=== PATIENT | male | born 1985 | race Two or more races ===

== ENCOUNTER 2020-06-26 01:43 | Emergency (ER) | payer SELFPAY ==
[~2020-06-26] VITALS: Ht 165.1 cm; Wt 68.0 kg
[2020-06-26 02:58] LABS: Basophils # (auto) 0.1 10 ^3/uL (0-0.2); Basophils % (auto) 0.7 % (0.0-2.0); Eosinophils # (auto) 0.3 10 ^3/uL (0-0.8); Eosinophils % (auto) 3.1 % (0.0-7.0); Hematocrit 39.2 % (41.0-53.0); Hemoglobin 13.3 g/dL (13.5-17.5); Lymphocytes # (auto) 1.7 10 ^3/uL (0.4-5.4); Lymphocytes % (auto) 20.7 % (10.0-50.0); Mean Corpuscular Hemoglobin 28.5 pg (28.0-32.0); Mean Corpuscular Hgb Conc. 34.1 g/dL (32.0-36.0); Mean Corpuscular Volume 83.6 fL (80.0-100.0); Monocytes # (auto) 0.5 10 ^3/uL (0-1.3); Neutrophils # (auto) 5.8 10 ^3/uL (1.6-8.6); Neutrophils % (auto) 69.5 % (37.0-80.0); Platelet Count (auto) 319 10^3/uL (140-450); Red Blood Cells 4.69 10^6/uL (4.5-5.90); White Blood Cell 8.3 10^3/uL (4.4-10.8)
[2020-06-26 03:16] LABS: Albumin 3.7 g/dL (3.4-5.0); BUN/Creatinine Ratio 15.6; Potassium 3.4 mmol/L (3.5-5.1)
[2020-06-26 03:19] LABS: Bilirubin, Total 0.5 mg/dL (0.2-1.0); Total Protein 7.2 g/dL (6.4-8.2)
[2020-06-26 03:24] LABS: Magnesium 2.2 mg/dL (1.6-2.6)
[2020-06-26 06:00] VITALS: BP 117/75
== END 2020-06-26 06:36 | disposition home or self-care (01) ==
LOC: ER 01:46
DX: J02.9 Acute pharyngitis, unspecified (principal); F17.210 Nicotine dependence, cigarettes, uncomplicated; Z20.822 Contact with and (suspected) exposure to COVID-19
CPT/HCPCS: 36415; 71045; 80053; 82728; 83605; 83615; 83735; 85025; 87070; 87426; 87880

== ENCOUNTER 2022-04-28 06:01 | Emergency (ER) | payer OTHER ==
[~2022-04-28] VITALS: Ht 167.6 cm; Wt 66.8 kg
[~2022-04-28 06:01] MED LIST: CIPR-173 PO
[2022-04-28 06:30] VITALS: BP 121/72
== END 2022-04-28 06:54 | disposition left against medical advice (07) ==
LOC: ER 06:01
DX: R11.2 Nausea with vomiting, unspecified (principal); Z53.21 Procedure and treatment not carried out due to patient leaving prior to being seen by health care provider

== ENCOUNTER 2023-08-28 00:10 | Emergency (ER) | payer MEDICAID, OTHER ==
[~2023-08-28] VITALS: Ht 167.6 cm; Wt 65.0 kg
[2023-08-28] MEDS ORDERED: ACE3T PO (01:50)
[2023-08-28] MEDS ORDERED: IBUP-1456 PO (01:50)
[2023-08-28 04:20] VITALS: BP 128/88; PULSE 85; RESP 18; TEMP 98.1; O2SAT 97
[2023-08-28] MEDS: HYDROcodone-ACET 10/325MG TAB PO ONE (04:20)
== END 2023-08-28 04:33 | disposition home or self-care (01) ==
LOC: ER 00:10
DX: K40.90 Unilateral inguinal hernia, without obstruction or gangrene, not specified as recurrent (principal); F17.210 Nicotine dependence, cigarettes, uncomplicated
CPT/HCPCS: 76856

== ENCOUNTER 2023-08-28 11:19 | Emergency (ER) | payer MEDICAID ==
[~2023-08-28] VITALS: Ht 167.6 cm; Wt 74.2 kg
[~2023-08-28 11:19] MED LIST changes: +ACE3T PO; +IBUP-1456 PO
[2023-08-28 11:42] VITALS: BP 116/75; PULSE 97; RESP 18; O2SAT 98
== END 2023-08-28 13:01 | disposition left against medical advice (07) ==
LOC: ER 11:28
DX: K40.90 Unilateral inguinal hernia, without obstruction or gangrene, not specified as recurrent (principal); F17.210 Nicotine dependence, cigarettes, uncomplicated; F15.90 Other stimulant use, unspecified, uncomplicated; Z98.890 Other specified postprocedural states; Z79.899 Other long term (current) drug therapy

== ENCOUNTER 2024-01-03 03:50 | Emergency (ER) | payer MEDICAID ==
[~2024-01-03] VITALS: Ht 167.6 cm; Wt 67.1 kg
[2024-01-03] MEDS: HYDROcodone-ACET 5/325MG TAB PO ONE (04:42)
[2024-01-03] MEDS: KETOROLAC TROMETH 60MG/2ML VIAL IM ONE (04:43)
[2024-01-03 04:57] VITALS: BP 120/71; TEMP 97.9
[2024-01-03 04:59] VITALS: PULSE 95; RESP 18; O2SAT 98
== END 2024-01-03 05:34 | disposition home or self-care (01) ==
LOC: ER 03:50
DX: K40.90 Unilateral inguinal hernia, without obstruction or gangrene, not specified as recurrent (principal); F17.210 Nicotine dependence, cigarettes, uncomplicated; Z79.899 Other long term (current) drug therapy; Z90.49 Acquired absence of other specified parts of digestive tract; Z90.89 Acquired absence of other organs
CPT/HCPCS: 96372; 99283; J1885

== ENCOUNTER 2024-03-10 06:53 | Emergency (ER) | payer MEDICAID ==
[~2024-03-10] VITALS: Ht 170.2 cm; Wt 75.0 kg
[2024-03-10] MEDS: KETOROLAC TROMETH 30 MG/ML 1ML VIAL IV ONE (08:01)
[2024-03-10] MEDS: SODIUM CHLORIDE 0.9% 1,000 ML IV ONE (08:01)
[2024-03-10 08:09] VITALS: PULSE 75; RESP 19; O2SAT 95
[2024-03-10 08:15] VITALS: TEMP 97.6; O2SAT 96
[2024-03-10 08:26] LABS: Basophils # (auto) 0.1 10 ^3/uL (0-0.2); Basophils % (auto) 0.6 % (0.0-2.0); Eosinophils # (auto) 0.2 10 ^3/uL (0-0.8); Eosinophils % (auto) 1.6 % (0.0-7.0); Hematocrit 39.6 % (41.0-53.0); Hemoglobin 13.1 g/dL (13.5-17.5); Lymphocytes # (auto) 1.3 10 ^3/uL (0.4-5.4); Lymphocytes % (auto) 13.1 % (10.0-50.0); Mean Corpuscular Hemoglobin 29.2 pg (28.0-32.0); Mean Corpuscular Hgb Conc. 33.2 g/dL (32.0-36.0); Mean Corpuscular Volume 87.8 fL (80.0-100.0); Monocytes # (auto) 0.4 10 ^3/uL (0-1.3); Monocytes % (auto) 4.7 % (0.0-12.0); Neutrophils # (auto) 7.7 10 ^3/uL (1.6-8.6); Platelet Count (auto) 310 10^3/uL (140-450); Red Blood Cells 4.51 10^6/uL (4.5-5.90); Red Cell Distribution Width 13.4 % (11.8-14.3); White Blood Cell 9.6 10^3/uL (4.4-10.8)
--- NOTE | 2024-03-10 08:31 | DVH ---
EXAM: CT Abdomen and Pelvis Without Intravenous Contrast CLINICAL INDICATION: R inguinal hernia pain TECHNIQUE: Axial computed tomography images of the abdomen and pelvis without intravenous contrast. This CT exam was performed using one or more of the following dose reduction techniques: automated exposure control, adjustment of the mA and/or kV according to patient size, and/or use of iterative r econstruction technique. RADIATION DOSE: CTDlvol= 6 mGy, DLP= 366.06 mGy-cm COMPARISON: None FINDINGS: LUNG BASES: Unremarkable. No mass. No consolidation. ABDOMEN: LIVER: Unremarkable. GALLBLADDER AND BILE DUCTS: Unremarkable. No calcified stones. No ductal dilation. PANCREAS: Unremarkable. No ductal dilation. SPLEEN: Unremarkable. No splenomegaly. ADRENALS: Unremarkable. No mass. KIDNEYS AND URETERS: Unremarkable. No obstructing stones. No hydronephrosis. STOMACH AND BOWEL: Bilateral inguinal hernias containing fat. No bowel obstruction or pneumoperitone um. Fecal retention in the colon consistent with constipation. No mucosal thickening. PELVIS: APPENDIX: No findings to suggest acute appendicitis. BLADDER: Unremarkable. No stones. REPRODUCTIVE: Unremarkable as visualized. ABDOMEN and PELVIS: INTRAPERITONEAL SPACE: See above. BONES/JOINTS: No acute fracture. No dislocation. SOFT TISSUES: Umbilical hernia containing fat. VASCULATURE: Unremarkable. No abdominal aortic aneurysm. LYMPH NODES: Unremarkable. No enlarged lymph nodes. OTHER FINDINGS: . . IMPRESSION: 1. Bilateral inguinal hernias containing fat. No bowel obstruction or pneumoperitoneum. 2. Fecal retention in the colon consistent with constipation. 3. Umbilical hernia containing fat.
[2024-03-10 08:37] LABS: Alanine Aminotransferase 23 U/L (7-40); Albumin 4.3 g/dL (3.2-4.8); Alkaline Phosphatase 96 U/L (46-116); Anion Gap 10 (5-15); Aspartate Aminotransferase 34 U/L (13-40); BUN/Creatinine Ratio 18.3 (10.0-20.0); Blood Urea Nitrogen 15 mg/dL (9-23); Calcium 9.4 mg/dL (8.7-10.4); Carbon Dioxide 25 mmol/L (20-31); Chloride 105 mmol/L (98-107); Glucose 96 mg/dL (74-106); Sodium 140 mmol/L (136-145)
[2024-03-10 08:38] LABS: Bilirubin, Total 0.5 mg/dL (0.2-1.0); Total Protein 6.8 g/dL (5.7-8.2)
[2024-03-10 08:39] LABS: Potassium 3.4 mmol/L (3.5-5.1)
[2024-03-10] MEDS: ONDANSETRON HCL 4 MG/2 ML VIAL IV ONE ×3 (08:59→10:20)
[2024-03-10] MEDS: MORPHINE SULFATE 4 MG/ML SYR/VIAL IV ONE ×3 (08:59→10:20)
--- NOTE | 2024-03-10 09:28 | ED.PDOC ---
History of Present Illness HPI Comments 38M BIBA w/ no prior Hx associated to the c/c of Pelvic pain. Pt reports on having a right sided pelvic hernia pain for the past 4 hours. Pt states that when the hernia comes out, he does not "mess with it" or even try to push it back in. SHx of Tonsillectomy. Denies chills, fever, N/V/D, SOB, CP or other as sociated symptoms, modifiers, or recent injuries at this time. Chief Complaint: Pelvic Pain Time Seen by MD: 08:50 Primary Care Provider: NONE Reviewed Notes: Nurses Notes, Repairer Pump Notes, Medications, Allergies Allergies: Coded Allergies: NO KNOWN ALLERGIES (Unverified , 06/26/20) Home Meds Active Scripts Ibuprofen Micronized (Ibuprofen) 800 Mg Tab, 800 MG PO Q8HP PRN, #30 TAB prn pain, take with food Prov:JULISSA MANTILLA MD 03/10/24 Acetaminophen (Tylenol Extra Strength) 500 Mg Tab, 1000 MG PO Q6HP PRN, #30 TAB prn pain Prov:JULISSA MANTILLA MD 03/10/24 Acetaminophen W/ Codeine (Tylenol W/Cod #3) 1 Tab Tb, 1 TAB PO Q6HP PRN, #20 TAB Prov:JIMENA PETERS PAC 08/28/23 Ibuprofen (Ibuprofen) 800 Mg Tab, 1 TAB PO TID, #30 TAB 0 Refills Prov:JIMENA PETERS PAC 08/28/23 Ciprofloxacin Hcl (Cipro) 500 Mg Tab, 500 MG PO BID for 7 Days, #14 Prov:JHONY GRACE MD 06/08/21 Information Source: Patient Mode of Arrival: EMS Severity: Moderate Timing: Hours Duration: Since onset, Hours Prehospital treatment: None Past Medical History PAST MEDICAL HISTORY: Denies Surgical History: Tonsillectomy Family History Family History: Reviewed,noncontributory to illness, Unknown Social History Smoker: Unknown Alcohol: Unknown Drugs: Unknown Lives In: Home Constitutional: reports: others (Hernia); denies: chills, diaphoresis, fatigue, fever, malaise, sweats, weakness EENTM: denies: blurred vision, double vision, ear bleeding, ear discharge, ear drainage, ear pain, ear ringing, eye pain, eye redness, hearing loss, mouth pain, mouth swelling, nasal discharge, nose bleeding, nose congestion, nose pain, photophobia, tearing, throat pain, throat swelling, voice changes, others Respiratory: denies: cough, hemoptysis, orthopnea, SOB at rest, shortness of breath, SOB with excertion, stridor, wheezing, others Cardiovascular: denies: chest pain, dizzy spells, diaphoresis, Dyspnea on e xertion, edema, irregular heart beat, left arm pain, lightheadedness, palpitations, PND, syncope, others Gastrointestinal: denies: abdomen distended, abdominal pain, blood streaked bowels, constipated, diarrhea, dysphagia, difficulty swallowing, hematemesis, melena, nausea, poor appetite, poor fluid intake, rectal bleeding, rectal pain, vomiting, others Genitourinary: denies: burning, dysuria, flank pain, frequency, hematuria, incontinence, penile discharge, penile sore, pain, testicle pain, testicle swelling, urgency, others Neurological: denies: dizziness, fainting, headache, left sided numbness, left sided weakness, numbness, paresthesia, pre-existing deficit, right sided numbness, right sided weakness, seizure, speech problems, tingling, tremors, weakness, others Musculoskeletal: denies: back pain, gout, joint pain, joint swelling, muscle pain, muscle stiffness, neck pain, others Integumetry: denies: bruises, change in color, change in hair/nails, dryness, laceration, lesions, lumps, rash, wounds, others Allergic/Immunocompromised: denies: Difficulty Healing, Frequent Infections, Hives, Itching, others Hematologic/Lymphatic: denies: anemia, blood clots, easy bleeding, easy bruising, swollen glands, others Endocrine: denies: excessive hunger, excessive sweating, excessive thirst, excessive urination, flushing, intolerance to cold, intolerance to heat, unexplained weight gain, unexplained weight loss, others Psychiatric: denies: anxiety, bipolar disorder, depression, hopeless, panic disorder, schizophrenia, sleepless, suicidal, others All Other Systems: Reviewed and Negative Physical Exam General Appearance: Mild Distress HEENT: Other (Pupils symmetric, moist mucous membranes) Neck: Full Range of Motion, Normal Inspection Respiratory: Lungs Clear, No Accessory Muscle Use, No Respiratory Distress, Normal Breath Sounds Cardiovascular: No Edema, No JVD, Regular Rate/Rhythm Breast Exam: Deferred Gastrointestinal: Soft, Other (Soft, diffusely tender right inguinal hernia, approximately 4 x 4 cm. No overlying discoloration.) Genitalia: Deferred Pelvic: Deferred Rectal: Deferred Extremities: Normal inspection, Normal range of motion, Non-tender, No pedal edema Musculoskeletal : Apperance: Normal Neurologic: Alert (Oriented x4), Normal Affect, Normal Mood, Other (Ambulatory without difficulty. No gross focal deficit.) Cerebellar Function: NOT DONE Reflexes: NOT DONE Skin: Dry, Normal Color, Warm Lymphatic: NOT DONE Was a procedure done? Was a procedure done?: Yes Sedation Sedation?: No Other Procedure Procedure Reduction of fat containing right inguinal hernia Indication Pain Anesthetic Morphine 4 mg IV Success Direct fat containing right inguinal hernia reduced using gentle direct constant pressure. Informed consent obtained: Yes Risks, benefits, and alternati: Yes Notes Patient tolerated the procedure well. Differential Dx Considerations may include: Direct/indirect inguinal hernia, incarceration, bowel obstruction, ischemic bowel, neoplasm, among others X-Ray, Labs, Meds, VS Vital Signs Date Time Temp Pulse Resp B/P (MAP) Pulse Ox O2 Delivery O2 Flow Rate FiO2 03/10/24 10:20 84 20 120/71 03/10/24 09:26 74 19 110/74 03/10/24 08:59 87 19 122/60 03/10/24 08:15 97.6 86 19 117/81 (93) 96 97.6 03/10/24 08:09 75 19 95 Room Air* 0 21 03/10/24 07:12 99.1 64 20 100/71 (81) 98 Lab Test 03/10/24 08:05 Range/Units White Blood Count 9.6 4.4-10.8 10^3/uL Red Blood Count 4.51 4.5-5.90 10^6/uL Hemoglobin 13.1 L 13.5-17.5 g/dL Hematocrit 39.6 L 41.0-53.0 % Mean Corpuscular Volume 87.8 80.0-100.0 fL Mean Corpuscular Hemoglobin 29.2 28.0-32.0 pg Mean Corpuscular Hemoglobin Concent 33.2 32.0-36.0 g/dL Red Cell Distribution Width 13.4 11.8-14.3 % Platelet Count 310 140-450 10^3/uL Mean Platelet Volume 8.4 6.9-10.8 fL Neutrophils (%) (Auto) 80.0 37.0-80.0 % Lymphocytes (%) (Auto) 13.1 10.0-50.0 % Monocytes (%) (Auto) 4.7 0.0-12.0 % Eosinophils (%) (Auto) 1.6 0.0-7.0 % Basophils (%) (Auto) 0.6 0.0-2.0 % Neutrophils # (Auto) 7.7 1.6-8.6 10 ^3/uL Lymphocytes # (Auto) 1.3 0.4-5.4 10 ^3/uL Monocytes # (Auto) 0.4 0-1.3 10 ^3/uL Eosinophils # (Auto) 0.2 0-0.8 10 ^3/uL Basophils # (Auto) 0.1 0-0.2 10 ^3/uL Nucleated Red Blood Cells 0.0 % Sodium Level 140 136-145 mmol/L Potassium Level 3.4 L 3.5-5.1 mmol/L Chloride Level 105 98-107 mmol/L Carbon Dioxide Level 25 20-31 mmol/L Anion Gap 10 5-15 Blood Urea Nitrogen 15 9-23 mg/dL Creatinine 0.82 0.700-1.30 mg/dL Glomerular Filtration Rate Calc 116 >90 mL/min BUN/Creatinine Ratio 18.3 10.0-20.0 Serum Glucose 96 74-106 mg/dL Calcium Level 9.4 8.7-10.4 mg/dL Total Bilirubin 0.5 0.2-1.0 mg/dL Aspartate Amino Transferase (AST) 34 13-40 U/L Alanine Aminotransferase (ALT) 23 7-40 U/L Alkaline Phosphatase 96 46-116 U/L Total Protein 6.8 5.7-8.2 g/dL Albumin 4.3 3.2-4.8 g/dL Current Medications Medications (Trade) Dose Ordered Sig/Goldy Route Start Time Stop Time Status Last Admin Sodium Chloride 1,000 ml @ 1,000 mls/hr Q1H ONCE IV 03/10/24 07:30 03/10/24 08:29 DC 03/10/24 08:01 Ketorolac Tromethamine (Toradol Injection) 30 mg ONCE ONCE IV 03/10/24 07:30 03/10/24 07:31 DC 03/10/24 08:01 Morphine Sulfate 4 mg ONCE ONCE IV 03/10/24 09:00 03/10/24 09:01 DC 03/10/24 08:59 Ondansetron HCl (Zofran) 4 mg ONCE ONCE IV 03/10/24 09:00 03/10/24 09:01 DC 03/10/24 08:59 Morphine Sulfate 4 mg ONCE ONCE IV 03/10/24 10:15 03/10/24 10:16 DC 03/10/24 10:20 Ondansetron HCl (Zofran) 4 mg ONCE ONCE IV 03/10/24 10:15 03/10/24 10:16 DC 03/10/24 10:20 PROCEDURE(s): ABPL - CT AB PEL WO CON-NO ORAL OR IV REASON: R inguinal hernia pain ORDER NUMBER(s): [id number], ACCESSION NUMBER(s): [id number] EXAM: CT Abdomen and Pelvis Without Intravenous Contrast CLINICAL INDICATION: R inguinal hernia pain TECHNIQUE: Axial computed tomography images of the abdomen and pelvis without intravenous contrast. This CT exam was performed using one or more of the fol lowing dose reduction techniques: automated exposure control, adjustment of the mA and/or kV according to patient size, and/or use of iterative reconstruction technique. RADIATION DOSE: CTDlvol= 6 mGy, DLP= 366.06 mGy-cm COMPARISON: None FINDINGS: LUNG BASES: Unremarkable. No mass. No consolidation. ABDOMEN: LIVER: Unremarkable. GALLBLADDER AND BILE DUCTS: Unremarkable. No calcified stones. No ductal dilation. PANCREAS: Unremarkable. No ductal dilation. SPLEEN: Unremarkable. No splenomegaly. ADRENALS: Unremarkable. No mass. KIDNEYS AND URETERS: Unremarkable. No obstructing stones. No hydronephrosis. STOMACH AND BOWEL: Bilateral inguinal hernias containing fat. No bowel obstruction or pneumoperitoneum. Fecal retention in the colon consistent with constipation. No mucosal thickening. PELVIS: APPENDIX: No findings to suggest acute appendicitis. BLADDER: Unremarkable. No stones. REPRODUCTIVE: Unremarkable as visualized. ABDOMEN and PELVIS: INTRAPERITONEAL SPACE: See above. BONES/JOINTS: No acute fracture. No dislocation. SOFT TISSUES: Umbilical hernia containing fat. VASCULATURE: Unremarkable. No abdominal aortic aneurysm. LYMPH NODES: Unremarkable. No enlarged lymph nodes. OTHER FINDINGS: . . IMPRESSION: 1. Bilateral inguinal hernias containing fat. No bowel obstruction or pneumoperitoneum. 2. Fecal retention in the colon consistent with constipation. 3. Umbilical hernia containing fat. X-Ray, Labs, Meds, VS Comment 38-year-old male with no significant past medical history complaining of right inguinal hernia pain. Vitals unremarkable Exam remarkable for right inguinal hernia, soft, diffusely tender Rhythm strip, independently interpreted by me: Sinus rhythm, rate 68, no ectopy. CT abdomen and pelvis: IMPRESSION: 1. Bilateral inguinal hernias containing fat. No bowel obstruction or pneumoperitoneum. 2. Fecal retention in the colon consistent with constipation. 3. Umbilical hernia containing fat. CBC, CMP unremarkable for any abnormality of acute significance. UA pending. Patient treated with the following in the ED: 1 L 0.9 normal saline IV bolus, Toradol 30 mg IV, morphine 4 mg IV x2 The right inguinal hernia was reduced using direct pressure. Please see procedure note for details. On re-evaluation, patient states pain has improved. Vitals are stable. He was tolerating p.o. food and fluids. Hospitalization was considered, however patient had rapid improvement of his symptoms with treatment in the ED, and I no longer feel hospitalization is necessary. Patient advised regarding workup findings, my impression, treatment plan and follow-up recommendations, specifically to follow-up with Dr. Piper for outpatient surgical evaluation for hernia repair. He expressed understanding and agreed. Rx ibuprofen, Tylenol Time of 1ST Reevaluation: 09:20 Reevaluation 1ST: Unchanged Time of 2ND Reevaluation: 10:42 Reevaluation 2ND: Improved Patient Education/Counseling: Diagnosis, Treatment, Prognosis Family Education/Counseling: No Family Present Additional Information I reviewed the following notes from the pt's past medical encounters: 01/03/24 The following tests were ordered, and results were reviewed by me: labs, PHA, CT I reviewed and agreed with the following test results read by other providers: CT I discussed treatments and results with medical personnel and: (consultants, fam, etc) Departure 1 Departure Time of Disposition: 10:17 Impression: Primary Impression: Direct inguinal hernia of right side Disposition: 01 HOME / SELF CARE / HOMELESS Condition: Stable Referrals: RODRI PIPER MD Additional Instructions: Your blood tests were unremarkable. Your CT showed fat containing hernias on both the right and left sides. I have prescribed pain medication. Follow-up with your primary doctor for referral to a general surgeon for hernia repair. Alternatively, follow-up directly with Dr. Piper (general surgery). e-Prescriptions Ibuprofen Micronized (Ibuprofen) 800 Mg Tab 800 MG PO Q8HP PRN, #30 TAB prn pain, take with food Prov: JULISSA MANTILLA MD 03/10/24 Acetaminophen (Tylenol Extra Strength) 500 Mg Tab 1000 MG PO Q6HP PRN, #30 TAB prn pain Prov: JULISSA MANTILLA MD 03/10/24 Discharged With: Self Critical Care Note Critical Care Time?: No Stability Stability form required: No Heart Score Heart Score: Heart Score Response (Comments) Value History N/A 0 EKG N/A 0 Age N/A 0 Risk Factors N/A 0 Troponin N/A 0 Total 0 I personally scribed for JULISSA MANTILLA MD ([email or web address]) on 03/10/24 at 09 :28. Electronically submitted by Jason Sung ([email or web address]). JULISSA MANTILLA MD Mar 10, 2024 09:28
[2024-03-10] MEDS ORDERED: ACET-1304 PO (10:21)
[2024-03-10] MEDS ORDERED: IBUP-1455 PO (10:21)
[2024-03-10 10:48] VITALS: BP 112/86; PULSE 84; RESP 19
== END 2024-03-10 10:50 | disposition home or self-care (01) ==
LOC: ER 06:53 → EDBD 06:53 → ER 10:50
DX: K40.90 Unilateral inguinal hernia, without obstruction or gangrene, not specified as recurrent (principal); F17.200 Nicotine dependence, unspecified, uncomplicated; K42.9 Umbilical hernia without obstruction or gangrene; Z79.1 Long term (current) use of non-steroidal anti-inflammatories (NSAID); Z90.89 Acquired absence of other organs
CPT/HCPCS: 36415; 74176; 80053; 85025; 96374; 96375; 96376; 99285; J1885; J2270; J2405; J7030

== ENCOUNTER 2024-03-16 01:56 | Emergency (ER) | payer MEDICAID ==
[~2024-03-16] VITALS: Ht 165.1 cm; Wt 72.0 kg
[2024-03-16 01:56] VITALS: BP 129/88; PULSE 79; RESP 18; TEMP 98.7; O2SAT 98
[~2024-03-16 01:56] MED LIST changes: +ACET-1304 PO; +IBUP-1455 PO
--- NOTE | 2024-03-16 02:15 | ED.PDOC ---
GI ASSESSMENT HPI Comments 38-year-old male who came to ER via EMS for abdominal pain. Patient was diagnosed to have direct right inguinal hernia since August 2023. Since then patient has been having episodes of right inguinal pain with a reducible hernia. Patient has not yet seen a surgeon regarding this issue. Recurrence of right inguinal pain with bulging mass right inguinal area prompted patient to come to the ER Chief Complaint: Abdominal pain Time Seen by MD: 02:14 Primary Care Provider: NONE Reviewed Notes: Nurses Notes Allergies: Coded Allergies: NO KNOWN ALLERGIES (Unverified , 06/26/20) Home Meds Active Scripts Ibuprofen Micronized (Ibuprofen) 800 Mg Tab, 800 MG PO Q8HP PRN, #30 TAB prn pain, take with food Prov:JULISSA MANTILLA MD 03/10/24 Acetaminophen (Tylenol Extra Strength) 500 Mg Tab, 1000 MG PO Q6HP PRN, #30 TAB prn pain Prov:JULISSA MANTILLA MD 03/10/24 Acetaminophen W/ Codeine (Tylenol W/Cod #3) 1 Tab Tb, 1 TAB PO Q6HP PRN, #20 TAB Prov:JIMENA PETERS PAC 08/28/23 Ibuprofen (Ibuprofen) 800 Mg Tab, 1 TAB PO TID, #30 TAB 0 Refills Prov:JIMENA PETERS PAC 08/28/23 Ciprofloxacin Hcl (Cipro) 500 Mg Tab, 500 MG PO BID for 7 Days, #14 Prov:JHONY GRACE MD 06/08/21 Information Source: Patient Mode of Arrival: EMS Timing: Days Duration: Intermittent Prehospital treatment: None Quality: Aching Vomitus: None Stool: Normal Severity: Moderate Recent: None Recent Hx of: None Pain Location: Other (Right inguinal) Associated sign and symptoms: Abdominal Pain Past Medical History PAST MEDICAL HISTORY: Denies Surgical History: Tonsillectomy Family History Family History: Reviewed,noncontributory to illness Social History Smoker: Non-Smoker Alcohol: Denies ETOH Use Drugs: Methamphetamine Lives In: Home Constitutional: denies: chills, diaphoresis, fatigue, fever, malaise, sweats, weakness, others EENTM: denies: blurred vision, double vision, ear bleeding, ear discharge, ear drainage, ear pain, ear ringing, eye pain, eye redness, hearing loss, mouth pain, mouth swelling, nasal discharge, nose bleeding, nose congestion, nose pain, photophobia, tearing, throat pain, throat swelling, voice changes, others Respiratory: denies: cough, hemoptysis, orthopnea, SOB at rest, shortness of breath, SOB with excertion, stridor, wheezing, others Cardiovascular: denies: chest pain, dizzy spells, diaphoresis, Dyspnea on exertion, edema, irregular heart beat, left arm pain, lightheadedness, palpitations, PND, syncope, others Gastrointestinal: reports: abdominal pain (Right inguinal area); denies: abdomen distended, blood streaked bowels, constipated, diarrhea, dysphagia, difficulty swallowing, hematemesis, melena, nausea, poor appetite, poor fluid intake, rectal bleeding, rectal pain, vomiting, others Genitourinary: denies: burning, dysuria, flank pain, frequency, hematuria, incontinence, penile discharge, penile sore, pain, testicle pain, testicle swelling, urgency, others Neurological: denies: dizziness, fainting, headache, left sided numbness, left sided weakness, numbness, paresthesia, pre-existing deficit, right sided numbness, right sided weakness, seizure, speech problems, tingling, tremors, weakness, others Musculoskeletal: denies: back pain, gout, joint pain, joint swelling, muscle pain, muscle stiffness, neck pain, others Integumetry: denies: bruises, change in color, change in hair/nails, dryness, laceration, lesions, lumps, rash, wounds, others Allergic/Immunocompromised: denies: Difficulty Healing, Frequent Infections, Hives, Itching, others Hematologic/Lymphatic: denies: anemia, blood clots, easy bleeding, easy br uising, swollen glands, others Endocrine: denies: excessive hunger, excessive sweating, excessive thirst, excessive urination, flushing, intolerance to cold, intolerance to heat, unexplained weight gain, unexplained weight loss, others Psychiatric: denies: anxiety, bipolar disorder, depression, hopeless, panic disorder, schizophrenia, sleepless, suicidal, others Physical Exam General Appearance: No Apparent Distress, Normal HEENT: Normal ENT Inspection, Pharynx Normal, TMs Normal Neck: Full Range of Motion, Non-Tender, Normal, Normal Inspection Respiratory: Chest Non-Tender, Lungs Clear, No Accessory Muscle Use, No R espiratory Distress, Normal Breath Sounds Cardiovascular: No Edema, No JVD, No Murmur, No Gallop, Normal Peripheral Pulses, Regular Rate/Rhythm Breast Exam: Deferred Gastrointestinal: Hernia (soft easily reducible right inguinal hernia), No Organomegaly, Non Tender, No Pulsatile Mass, Normal Bowel Sounds, Soft Genitalia: Deferred Pelvic: Deferred Rectal: Deferred Extremities: No calf tenderness, Normal capillary refill, Normal inspection, Normal range of motion, Non-tender, No pedal edema Musculoskeletal : Apperance: Normal Neurologic: Alert, shank faker II-XII nml as Tested, No Motor Deficits, Normal Affect, Normal Mood, No Sensory Deficits Cerebellar Function: Normal Reflexes: Normal Skin: Dry, Normal Color, Warm Lymphatic: No Adenopathy Was a procedure done? Was a procedure done?: No GI differential Dx Differential Diagnosis: Diverticular disease, Gastritis/PUD, Gastroenteritis, Hernia, Pancreatitis, UTI X-Ray, Labs, Meds, VS Vital Signs Date Time Temp Pulse Resp B/P (MAP) Pulse Ox O2 Delivery O2 Flow Rate FiO2 03/16/24 01:56 98.7 79 18 129/88 (102) 98 Time of 1ST Reevaluation: 02:11 Reevaluation 1ST: Improved Time of 2ND Reevaluation: 02:30 Reevaluation 2ND: Resolved Patient Education/Counseling: Diagnosis, Treatment Family Education/Counseling: No Family Present Departure 1 Departure Time of Disposition: 02:30 (right inguinal hernia, soft, easily reducible) Impression: Primary Impression: Direct inguinal hernia of right side Disposition: 01 HOME / SELF CARE / HOMELESS Condition: Stable Discharged With: Self Critical Care Note Critical Care Time?: No Stability Stability form required: No Heart Score Heart Score: Heart Score Response (Comments) Value History N/A 0 EKG N/A 0 Age N/A 0 Risk Factors N/A 0 Troponin N/A 0 Total 0 I personally scribed for LUL MULTANI MD ([email or web address]) on 03/16/24 at 02:15. Electronically submitted by Amos Jaquez ([email or web address]). LUL MULTANI MD Mar 16, 2024 02:15
[2024-03-16] MEDS: IBUPROFEN 600 MG TAB PO ONE (02:45)
== END 2024-03-16 03:34 | disposition home or self-care (01) ==
LOC: ER 01:56 → EDBD 01:56 → ER 03:34
DX: K40.90 Unilateral inguinal hernia, without obstruction or gangrene, not specified as recurrent (principal); F15.10 Other stimulant abuse, uncomplicated; Z79.1 Long term (current) use of non-steroidal anti-inflammatories (NSAID); Z90.89 Acquired absence of other organs

== ENCOUNTER 2024-03-20 19:34 | Inpatient (IN) | payer MEDICAID ==
[~2024-03-20] VITALS: Ht 167.6 cm; Wt 74.5 kg
--- NOTE | 2024-03-20 19:39 | ED.PDOC ---
History of Present Illness HPI Comments 38-year-old male who came to ER via EMS for abdominal pain. Patient was diagnosed to have direct right inguinal hernia since August 2023. Since then patient has been having episodes of right inguinal pain with a reducible hernia. Patient has not yet seen a surgeon regarding this issue. Recurrence of right inguinal pain with bulging mass right inguinal area prompted patient to come to the ER Time Seen by MD: 19:30 Primary Care Provider: NONE Reviewed Notes: Medications, Allergies Allergies: Coded Allergies: NO KNOWN ALLERGIES (Unverified , 06/26/20) Home Meds Active Scripts Ibuprofen Micronized (Ibuprofen) 800 Mg Tab, 800 MG PO Q8HP PRN, #30 TAB prn pain, take with food Prov:JULISSA MANTILLA MD 03/10/24 Acetaminophen (Tylenol Extra Strength) 500 Mg Tab, 1000 MG PO Q6HP PRN, #30 TAB prn pain Prov:JULISSA MANTILLA MD 03/10/24 Acetaminophen W/ Codeine (Tylenol W/Cod #3) 1 Tab Tb, 1 TAB PO Q6HP PRN, #20 TAB Prov:JIMENA PETERS PAC 08/28/23 Ibuprofen (Ibuprofen) 800 Mg Tab, 1 TAB PO TID, #30 TAB 0 Refills Prov:JIMENA PETERS PAC 08/28/23 Ciprofloxacin Hcl (Cipro) 500 Mg Tab, 500 MG PO BID for 7 Days, #14 Prov:JHONY GRACE MD 06/08/21 Information Source: Patient, Emergency Med Personnel Mode of Arrival: EMS Severity: Moderate Timing: Weeks Duration: Intermittent Prehospital treatment: None Past Medical History PAST MEDICAL HISTORY: Denies Surgical History: Tonsillectomy Family History Family History: Reviewed,noncontributory to illness Social History Smoker: Non-Smoker Alcohol: Denies ETOH Use Drugs: Methamphetamine Lives In: Home Constitutional: denies: chills, diaphoresis, fatigue, fever, malaise, sweats, weakness, others EENTM: denies: blurred vision, double vision, ear bleeding, ear discharge, ear drainage, ear pain, ear ringing, eye pain, eye redness, hearing loss, mouth pain, mouth swelling, nasal discharge, nose bleeding, nose congestion, nose pain, photophobia, tearing, throat pain, throat swelling, voice changes, others Respiratory: denies: cough, hemoptysis, orthopnea, SOB at rest, shortness of breath, SOB with excertion, stridor, wheezing, others Cardiovascular: denies: chest pain, dizzy spells, diaphoresis, Dyspnea on exertion, edema, irregular heart beat, left arm pain, lightheadedness, palpitations, PND, syncope, others Gastrointestinal: reports: abdominal pain; denies: abdomen distended, blood streaked bowels, constipated, diarrhea, dysphagia, difficulty swallowing, hematemesis, melena, nausea, poor appetite, poor fluid intake, rectal bleeding, rectal pain, vomiting, others Genitourinary: denies: burning, dysuria, flank pain, frequency, hematuria, incontinence, penile discharge, penile sore, pain, testicle pain, testicle swelling, urgency, others Neurological: denies: dizziness, fainting, headache, left sided numbness, left sided weakness, numbness, paresthesia, pre-existing deficit, right sided numbness, right sided weakness, seizure, speech problems, tingling, tremors, weakness, others Musculoskeletal: denies: back pain, gout, joint pain, joint swelling, muscle pain, muscle stiffness, neck pain, others Integumetry: denies: bruises, change in color, change in hair/nails, dryness, laceration, lesions, lumps, rash, wounds, others Allergic/Immunocompromised: denies: Difficulty Healing, Frequent Infections, Hives, Itching, others Hematologic/Lymphatic: denies: anemia, blood clots, easy bleeding, easy bruising, swollen glands, others Endocrine: denies: excessive hunger, excessive sweating, excessive thirst, excessive urination, flushing, intolerance to cold, intolerance to heat, unexplained weight gain, unexplained weight loss, others Psychiatric: denies: anxiety, bipolar disorder, depression, hopeless, panic disorder, schizophrenia, sleepless, suicidal, others All Other Systems: Reviewed and Negative Physical Exam General Appearance: No Apparent Distress, Normal HEENT: Normal ENT Inspection, Pharynx Normal, TMs Normal Neck: Full Range of Motion, Non-Tender, Normal, Normal Inspection Respiratory: Chest Non-Tender, Lungs Clear, No Accessory Muscle Use, No Respiratory Distress, Normal Breath Sounds Cardiovascular: No Edema, No JVD, No Murmur, No Gallop, Normal Peripheral Pulses, Regular Rate/Rhythm Breast Exam: Deferred Gastrointestinal: No Organomegaly, Non Tender, No Pulsatile Mass, Normal Bowel Sounds, Soft Genitalia: Deferred Pelvic: Deferred Rectal: Deferred Extremities: No calf tenderness, Normal capillary refill, Normal inspection, Normal range of motion, Non-tender, No pedal edema Musculoskeletal : Apperance: Normal Neurologic: Alert, cargoman II-XII nml as Tested, No Motor Deficits, Normal Affect, Normal Mood, No Sensory Deficits Cerebellar Function: Normal Reflexes: Normal Skin: Dry, Normal Color, Warm Lymphatic: No Adenopathy Was a procedure done? Was a procedure done?: No Differential Dx Considerations may include: Inguinal hernia, viral syndrome X-Ray, Labs, Meds, VS Vital Signs Date Time Temp Pulse Resp B/P (MAP) Pulse Ox O2 Delivery O2 Flow Rate FiO2 03/20/24 19:37 98.0 78 18 114/77 (89) 99 Lab Test 03/20/24 19:53 Range/Units White Blood Count 5.5 4.4-10.8 10^3/uL Red Blood Count 4.78 4.5-5.90 10^6/uL Hemoglobin 14.0 13.5-17.5 g/dL Hematocrit 42.1 41.0-53.0 % Mean Corpuscular Volume 88.0 80.0-100.0 fL Mean Corpuscular Hemoglobin 29.3 28.0-32.0 pg Mean Corpuscular Hemoglobin Concent 33.3 32.0-36.0 g/dL Red Cell Distribution Width 13.5 11.8-14.3 % Platelet Count 283 140-450 10^3/uL Mean Platelet Volume 8.4 6.9-10.8 fL Neutrophils (%) (Auto) 64.6 37.0-80.0 % Lymphocytes (%) (Auto) 24.1 10.0-50.0 % Monocytes (%) (Auto) 5.2 0.0-12.0 % Eosinophils (%) (Auto) 5.6 0.0-7.0 % Basophils (%) (Auto) 0.5 0.0-2.0 % Neutrophils # (Auto) 3.6 1.6-8.6 10 ^3/uL Lymphocytes # (Auto) 1.3 0.4-5.4 10 ^3/uL Monocytes # (Auto) 0.3 0-1.3 10 ^3/uL Eosinophils # (Auto) 0.3 0-0.8 10 ^3/uL Basophils # (Auto) 0 0-0.2 10 ^3/uL Nucleated Red Blood Cells 0.2 % Prothrombin Time 10.7 9.3-11.8 sec Prothrombin Time INR 1.01 0.9-1.15 Sodium Level 143 136-145 mmol/L Potassium Level 4.0 3.5-5.1 mmol/L Chloride Level 107 98-107 mmol/L Carbon Dioxide Level 27 20-31 mmol/L Anion Gap 9 5-15 Blood Urea Nitrogen 13 9-23 mg/dL Creatinine 1.05 0.700-1.30 mg/dL Glomerular Filtration Rate Calc 94 >90 mL/min BUN/Creatinine Ratio 12.4 10.0-20.0 Serum Glucose 115 H 74-106 mg/dL Calcium Level 9.7 8.7-10.4 mg/dL Time of 1ST Reevaluation: 20:00 Reevaluation 1ST: Unchanged Patient Education/Counseling: Diagnosis, Treatment, Prognosis Family Education/Counseling: No Family Present Departure 1 Departure Time of Disposition: 21:09 (Patient with a chronic inguinal hernia and causing him severe pain. We will admit patient for further workup and expert consultation) Impression: Primary Impression: Bilateral inguinal hernia Qualified Codes: K40.21 - Bilateral inguinal hernia, without obstruction or gangrene, recurrent Additional Impression: Intractable abdominal pain Disposition: ADMITTED INPATIENT Admit to: Med Surg Condition: Serious Critical Care Note Critical Care Time?: No Stability Stability form required: No I personally scribed for GUILLAUME NICOLAS MD ([email or web address]) on 03/20/24 at 19:39. Electronically submitted by Silverio Lepe ([email or web address]). GUILLAUME NICOLAS MD Mar 20, 2024 19:39
[2024-03-20 20:18] LABS: Basophils # (auto) 0 10 ^3/uL (0-0.2); Basophils % (auto) 0.5 % (0.0-2.0); Eosinophils # (auto) 0.3 10 ^3/uL (0-0.8); Eosinophils % (auto) 5.6 % (0.0-7.0); Hematocrit 42.1 % (41.0-53.0); Lymphocytes # (auto) 1.3 10 ^3/uL (0.4-5.4); Lymphocytes % (auto) 24.1 % (10.0-50.0); Mean Corpuscular Hemoglobin 29.3 pg (28.0-32.0); Mean Corpuscular Hgb Conc. 33.3 g/dL (32.0-36.0); Monocytes # (auto) 0.3 10 ^3/uL (0-1.3); Monocytes % (auto) 5.2 % (0.0-12.0); Neutrophils # (auto) 3.6 10 ^3/uL (1.6-8.6); Neutrophils % (auto) 64.6 % (37.0-80.0); Nucleated Red Blood Cells % 0.2 %; Platelet Count (auto) 283 10^3/uL (140-450); Red Blood Cells 4.78 10^6/uL (4.5-5.90); Red Cell Distribution Width 13.5 % (11.8-14.3); White Blood Cell 5.5 10^3/uL (4.4-10.8)
[2024-03-20 20:25] LABS: Chloride 107 mmol/L (98-107); Sodium 143 mmol/L (136-145)
[2024-03-20 20:26] LABS: Anion Gap 9 (5-15); Calcium 9.7 mg/dL (8.7-10.4); Carbon Dioxide 27 mmol/L (20-31)
[2024-03-20 20:31] LABS: BUN/Creatinine Ratio 12.4 (10.0-20.0); Blood Urea Nitrogen 13 mg/dL (9-23)
--- NOTE | 2024-03-20 20:31 | DVH ---
CHEST RADIOGRAPH Indication: pre-op Technique: Single frontal view of the chest was obtained COMPARISON: CHEST XRAY 1 VIEW on DOS: 06/26/20 FINDINGS: Lines and Tubes: None Lungs: Clear Pleura: No effusion. No pneumothorax. Cardiomediastinal contours: Unremarkable Bones: Unremarkable IMPRESSION: No acute disease.
[2024-03-20 20:33] LABS: Glucose 115 mg/dL (74-106)
[2024-03-20 20:49] LABS: INR 1.01 (0.9-1.15); Prothrombin Time 10.7 sec (9.3-11.8)
[2024-03-20] MEDS: KETOROLAC TROMETH 30 MG/ML 1ML VIAL IV ONE (21:47)
[2024-03-20] MEDS: SODIUM CHLORIDE 0.9% 1,000 ML IV ONE (21:47)
[2024-03-20] MEDS: ONDANSETRON HCL 4 MG/2 ML VIAL IV ONE (21:47)
--- NOTE | 2024-03-20 21:59 | DVHHPRES ---
History of Present Illness Resident Creating Document: KAREN VALLES RESIDENT History of Present Illness This is a 38-year-old male with past medical history of right-sided inguinal hernia presented to the ED with a chief complaint of lower abdominal pain and aching pain in the inguinal hernia for last 1 day prior to this admission. The patient states that he was diagnosed with inguinal hernia few months ago and presented to the ER few times because of the recurrent inguinal pain but no surgical evaluation was done before. The patient also complains of pain and irreducible inguinal hernia for the same duration. The patient denies fever, chills, nausea, vomiting, dysuria, hematuria or any change in the bowel habit. Past Medical History Right-sided inguinal hernia Past Surgical History Tonsillectomy Lives: Alone Past Social History Lives alone Smokes 2 to 3 cigarettes per day, occasional drinker and polysubstance abuse disorder Review of Systems Constitutional: No: Fever, Chills, Sweats, Weakness, Malaise, Other Eyes: No: Pain, Vision change, Conjunctivae inflammation, Eyelid inflammation, Other, Redness ENT: No: Ear pain, Ear discharge, Nose pain, Nose discharge, Nose congestion, Mouth pain, Mouth swelling, Throat pain, Throat swelling, Other Respiratory: No: Cough, Dry, Shortness of breath, SOB with excertion, Wheezing, Hemoptysis, Pleuritic Pain, Sputum, Wheezing, Other Cardiovascular: No: Chest Pain, Palpitations, Orthopnea, Paroxysmal Noc. Dyspnea, Edema, Lt Headedness, Other Gastrointestinal: Abdominal Pain; No: Nausea, Vomiting, Diarrhea, Constipation, Melena, Hematochezia, Other Genitourinary: No Dysuria, No Frequency, No Incontinence, No Hematuria, No Retention, No Other Musculoskeletal: No: other, neck pain, shoulder pain, arm pain, back pain, hand pain, leg pain, foot pain Skin: No: Rash, Lesions, Jaundice, Bruising, Other Neurological: No: Weakness, Numbness, Incoordination, Change in speech, Confusion, Seizures, Other Allergies: Coded Allergies: NO KNOWN ALLERGIES (Unverified , 06/26/20) Exam Vital Signs Vital Signs Date Time Temp Pulse Resp B/P (MAP) Pulse Ox O2 Delivery O2 Flow Rate FiO2 03/20/24 21:48 97.5 67 67 101/58 (72) 100 97.5 Exam Physical examination: General Appearance: Alert, Oriented X3, Cooperative, No acute distress HEENT: Atraumatic, PERRLA, EOMI, Mucous membrane moist/pink Respiratory: Clear to auscultation, Normal air movement Cardiovascular: Regular rate, Normal S1, Normal S2, No murmurs, no chest wall tenderness Abdominal: Normal bowel sounds, Soft, No tenderness, No hepatospenomegaly, No masses Extremities: No clubbing, No cyanosis, No edema, Normal pulses, No tenderness/swelling Skin: No rashes, No breakdown, No significant lesion Neuro: Normal gait, Normal speech, Strength at 5/5 X4 ext, Normal tone, Sensation intact, grossly intact cranial nerves Psych/Mental Status: Mental status NL, Mood NL Labs/Xrays Labs Test 03/20/24 19:53 Range/Units White Blood Count 5.5 4.4-10.8 10^3/uL Red Blood Count 4.78 4.5-5.90 10^6/uL Hemoglobin 14.0 13.5-17.5 g/dL Hematocrit 42.1 41.0-53.0 % Mean Corpuscular Volume 88.0 80.0-100.0 fL Mean Corpuscular Hemoglobin 29.3 28.0-32.0 pg Mean Corpuscular Hemoglobin Concent 33.3 32.0-36.0 g/dL Red Cell Distribution Width 13.5 11.8-14.3 % Platelet Count 283 140-450 10^3/uL Mean Platelet Volume 8.4 6.9-10.8 fL Neutrophils (%) (Auto) 64.6 37.0-80.0 % Lymphocytes (%) (Auto) 24.1 10.0-50.0 % Monocytes (%) (Auto) 5.2 0.0-12.0 % Eosinophils (%) (Auto) 5.6 0.0-7.0 % Basophils (%) (Auto) 0.5 0.0-2.0 % Neutrophils # (Auto) 3.6 1.6-8.6 10 ^3/uL Lymphocytes # (Auto) 1.3 0.4-5.4 10 ^3/uL Monocytes # (Auto) 0.3 0-1.3 10 ^3/uL Eosinophils # (Auto) 0.3 0-0.8 10 ^3/uL Basophils # (Auto) 0 0-0.2 10 ^3/uL Nucleated Red Blood Cells 0.2 % Prothrombin Time 10.7 9.3-11.8 sec Prothrombin Time INR 1.01 0.9-1.15 Sodium Level 143 136-145 mmol/L Potassium Level 4.0 3.5-5.1 mmol/L Chloride Level 107 98-107 mmol/L Carbon Dioxide Level 27 20-31 mmol/L Anion Gap 9 5-15 Blood Urea Nitrogen 13 9-23 mg/dL Creatinine 1.05 0.700-1.30 mg/dL Glomerular Filtration Rate Calc 94 >90 mL/min BUN/Creatinine Ratio 12.4 10.0-20.0 Serum Glucose 115 H 74-106 mg/dL Calcium Level 9.7 8.7-10.4 mg/dL Assessment/Plan Assessment/Plan Assessment and plan: # Possible incarcerated right inguinal hernia - NPO after midnight - IV normal saline at 75 mL/hour - IV cefazolin 2 g once and IV metronidazole 500 mg once - Consulted surgery Goal of care discussed with the patient for more than 17 minutes full code Plan discussed with Dr. Pressley Plan discussed with: Patient, Other My Orders Orders - KAREN VALLES RESIDENT Procedure Category Date Status Time Admit ADMIT 03/20/24 Verified 21:56 Type And Screen BBK 03/20/24 Verified 21:56 * Surgical Consult CONS 03/20/24 Verified NS PHA 03/20/24 Verified 22:00 Date of Service: Mar 20, 2024 Billing Provider: RAPHAEL PRESSLEY MD Common Visit Codes: [id number] INP/OBS CARE (HIGH) KAREN VALLES RESIDENT Mar 20, 2024 21:59 RAPHAEL PRESSLEY MD Mar 21, 2024 11:20
[2024-03-20] MEDS ORDERED: PIPERACILLIN-TAZO 4.5GM 100 ML IV ONE (23:45)
[2024-03-21] VITALS (9 sets, daily range): BP systolic 105–117; BP diastolic 56–77; PULSE 62–85; RESP 16–19; TEMP 97.8–98.5; O2SAT 96–100
[2024-03-21] MEDS: metroNIDAZOLE 500MG/100ML 100 ML IV ONE (02:19)
[2024-03-21] MEDS: SODIUM CHLORIDE 0.9% 1,000 ML IV SCH (02:19)
[2024-03-21] MEDS: ceFAZolin 2 GM/D5W50ml 50 ML IV ONE (04:08)
[2024-03-21 07:54] LABS: Basophils # (auto) 0 10 ^3/uL (0-0.2); Basophils % (auto) 0.6 % (0.0-2.0); Eosinophils # (auto) 0.4 10 ^3/uL (0-0.8); Eosinophils % (auto) 7.2 % (0.0-7.0); Hematocrit 38.8 % (41.0-53.0); Lymphocytes # (auto) 1.7 10 ^3/uL (0.4-5.4); Lymphocytes % (auto) 33.6 % (10.0-50.0); Mean Corpuscular Hemoglobin 29.6 pg (28.0-32.0); Mean Corpuscular Hgb Conc. 33.6 g/dL (32.0-36.0); Mean Corpuscular Volume 88.1 fL (80.0-100.0); Monocytes # (auto) 0.3 10 ^3/uL (0-1.3); Monocytes % (auto) 6.2 % (0.0-12.0); Neutrophils # (auto) 2.7 10 ^3/uL (1.6-8.6); Neutrophils % (auto) 52.4 % (37.0-80.0); Nucleated Red Blood Cells % 0.1 %; Platelet Count (auto) 252 10^3/uL (140-450); Red Cell Distribution Width 13.5 % (11.8-14.3); White Blood Cell 5.1 10^3/uL (4.4-10.8)
[2024-03-21 07:59] LABS: Potassium 4.2 mmol/L (3.5-5.1); Sodium 140 mmol/L (136-145)
[2024-03-21 08:00] LABS: Anion Gap 6 (5-15); Carbon Dioxide 26 mmol/L (20-31); Chloride 108 mmol/L (98-107)
[2024-03-21 08:01] LABS: Calcium 8.9 mg/dL (8.7-10.4)
[2024-03-21 08:05] LABS: BUN/Creatinine Ratio 18.8 (10.0-20.0); Blood Urea Nitrogen 15 mg/dL (9-23); Glucose 104 mg/dL (74-106)
--- NOTE | 2024-03-21 10:11 | DVHINCON2 ---
DATE OF CONSULTATION: 03/21/2024 HISTORY OF PRESENT ILLNESS: The patient has a symptomatic right inguinal hernia. He is examined in his bed. He is in no acute distress. The patient admits to having had right-sided hernia for extended period of time. It became painful approximately 48 hours ago. The patient has no prior medical history. He is a . PAST SURGICAL HISTORY: Tonsillectomy. SOCIAL HISTORY: . REVIEW OF SYSTEMS: Reveals no contributory information on 12 systems reviewed. PHYSICAL EXAMINATION: VITAL SIGNS: The patient is afebrile, normotensive, heart rate 67 and regular. HEENT: Pupils are equal, round, react to light equally. Sclerae nonicteric. Extraocular motion is intact. Uvula midline. Trachea midline. Carotids are full without bruits. Jugular veins are collapsed. HEART: Regular rate and rhythm without murmur or gallop. ABDOMEN: Nondistended, nontender. No palpable masses or organomegalies. Has right inguinoscrotal hernia, which is reducible and nontender to palpation. LABORATORY DATA: The patient's laboratory evaluation shows a normal white count, normal H and H, normal platelet count, normal INR, normal PT. The patient has normal electrolytes and normal chemistries. IMPRESSION AND PLAN: The patient has a right inguinal hernia, possibly chronically incarcerated. There is no indication for an immediate emergency surgical intervention. Procedure will be performed tomorrow. Risks, potential complications explained in detail. MD RIMA Chow/CARLOS/KAMRAN TID: [id number] RECEIPT: [id number]
--- NOTE | 2024-03-21 12:58 | DVHPNRES ---
Progress Note Date Seen: Mar 21, 2024 Resident Creating Document: JONATHAN HENRY RESIDENT Medical Necessity Reason Pt with a Central, PICC or Fol: No Subjective Review of Systems The patient is a 38-year-old male with a history of a right-sided inguinal hernia who presents with persistent right groin pain that has progressively worsened over the past few months. He describes the pain as 6/10 in intensity and states that it has been unrelieved with conservative measures. Examination revealed an incarcerated, non-reducible hernia without signs of severe inflammation, such as erythema, warmth, or systemic symptoms like fever. The patient is currently receiving analgesics, which provide moderate relief. He has been placed on a soft mechanical diet in preparation for elective surgery scheduled for tomorrow morning. Saline IV fluids have been discontinued as the patient has been allowed to eat and drink today but will remain NPO after midnight to prepare for surgery. Socially, the patient is homeless with a history of substance abuse, including cocaine, marijuana, and methamphetamines. He has no known history of ongoing substance use but would benefit from licensed clinical social worker support for housing and rehabilitation resources. The patient denies other acute complaints at this time. Patient reports: No new complaints Changes from previous H/P or p: No Changes Objective vital signs Vital Sign Date Time Temp Pulse Resp B/P (MAP) Pulse Ox O2 Delivery O2 Flow Rate FiO2 03/21/24 12:38 97.8 70 19 105/70 (82) 96 97.8 03/21/24 02:23 Room Air* 0 21 Total Intake and Output 03/20/24 03/20/24 03/21/24 14:59 22:59 06:59 Intake Total 100 ml Balance 100 ml medications Current Medications Medications Dose Ordered Sig/Goldy Route Start Time Stop Time Status Last Admin Dose Admin Sodium Chloride 1,000 ml @ 75 mls/hr [id number] IV 03/20/24 22:00 03/21/24 02:19 75 MLS/HR Examination Examination General Appearance: Alert, Oriented X3, Cooperative, mild acute distress HEENT: EOMI Respiratory: Clear to auscultation, Normal air movement Cardiovascular: Regular rate, Normal S1, Normal S2 Abdominal: Normal bowel sounds, right inguinal hernia(incarcerated) Extremities: No cyanosis, No edema, Normal pulses, No tenderness/swelling Skin: No rashes, No breakdown Neuro: Normal speech, Strength at 5/5 X4 ext, Normal tone, Sensation intact laboratory and microbiology Laboratory Tests 03/21/24 07:30 Test 03/21/24 07:30 Range/Units Serum Glucose 104 74-106 mg/dL Problem List/Assessment/Plan Problem List/Assessment/Plan # acute abdominal pain due to incarcerated right inguinal hernia - NPO after midnight - IV normal saline at 75 mL/hour - IV cefazolin 2 g once and IV metronidazole 500 mg once - surgery scheduled for tomorrow - PT/PTT/INR - type and screen - EKG #Polysubstance abuse #methamphetamine use #marijuana use #cocaine use -counseling regarding drug use cessation #Homelessness -licensed clinical social worker working on providing placement. Goal of care discussed with the patient for more than 24 minutes Plan discussed with Dr. Schreiber Code status: Full code Plan discussed with: Patient My Orders My Orders Orders - JONATHAN HENRY RESIDENT Procedure Category Date Status Time Mechanical Soft Diet DIET 03/21/24 Transmitted Lunch Date of Service: Mar 21, 2024 Billing Provider: RAPHAEL SCHREIBER MD Common Visit Codes: [id number] INP/OBS CARE(HIGH) JONATHAN HENRY RESIDENT Mar 21, 2024 12:57 RAPHAEL SCHREIBER MD Mar 22, 2024 11:41
[2024-03-22] VITALS (9 sets, daily range): BP systolic 103–125; BP diastolic 62–97; PULSE 64–99; RESP 18; TEMP 97.7–98.8; O2SAT 95–99
[2024-03-22 00:31] LABS: Urine Bacteria None Seen /hpf (None Seen)
[2024-03-22 00:40] LABS: Urine Blood Negative /uL (Negative); Urine Clarity Clear (Clear); Urine Color Light-Yellow (Yellow); Urine Protein, UAD Negative (Negative); Urine Sperm PRESENT /hpf (None Seen); Urine Urobilinogen Normal (Negative); Urine WBC <1 /hpf (0 - 3); Urine pH 6.5 (5.0-9.0)
[2024-03-22] MEDS: ceFAZolin 2 GM/D5W100ml 100 ML IV ONE (07:01)
[2024-03-22 07:10] LABS: Basophils # (auto) 0 10 ^3/uL (0-0.2); Basophils % (auto) 0.5 % (0.0-2.0); Eosinophils # (auto) 0.4 10 ^3/uL (0-0.8); Eosinophils % (auto) 6.1 % (0.0-7.0); Hematocrit 40.7 % (41.0-53.0); Hemoglobin 13.7 g/dL (13.5-17.5); Lymphocytes # (auto) 2.4 10 ^3/uL (0.4-5.4); Lymphocytes % (auto) 39.6 % (10.0-50.0); Mean Corpuscular Hemoglobin 29.6 pg (28.0-32.0); Mean Corpuscular Hgb Conc. 33.7 g/dL (32.0-36.0); Mean Corpuscular Volume 87.7 fL (80.0-100.0); Monocytes # (auto) 0.4 10 ^3/uL (0-1.3); Monocytes % (auto) 5.8 % (0.0-12.0); Neutrophils # (auto) 2.9 10 ^3/uL (1.6-8.6); Nucleated Red Blood Cells % 0.1 %; Platelet Count (auto) 273 10^3/uL (140-450); Red Blood Cells 4.64 10^6/uL (4.5-5.90); Red Cell Distribution Width 13.1 % (11.8-14.3)
[2024-03-22] MEDS: SUCCINYLCHOLINE CHLORIDE 20 MG/ML 10ML VIAL IV ONE (07:11)
[2024-03-22] MEDS: ROCURONIUM 10MG/ML 10ML VIAL IV ONE (07:11)
[2024-03-22] MEDS ORDERED: ONDANSETRON HCL 4 MG/2 ML VIAL ONE (07:20)
[2024-03-22] MEDS ORDERED: MIDAZOLAM HCL 2MG/2ML 2ml VIAL (1mg/ml) ONE (07:20)
[2024-03-22] MEDS ORDERED: LIDOCAINE 1% INJ PF 5ML AMP ONE (07:20)
[2024-03-22] MEDS ORDERED: fentaNYL CITRATE 100 MCG/2 ML VL ONE (07:20)
[2024-03-22] MEDS ORDERED: LIDOCAINE 2% TOPICAL JELLY 5 ML URJT TOP ONE (07:20)
[2024-03-22] MEDS ORDERED: SODIUM CHLORIDE LOCK 10 ML ONE (07:20)
[2024-03-22] MEDS ORDERED: MEPERIDINE HCL (25 MG/ML) 1ML VIAL ONE (07:20)
[2024-03-22 07:48] LABS: Anion Gap 5 (5-15); Carbon Dioxide 27 mmol/L (20-31); Chloride 106 mmol/L (98-107); Potassium 4.1 mmol/L (3.5-5.1); Sodium 138 mmol/L (136-145)
[2024-03-22 07:50] LABS: Calcium 8.9 mg/dL (8.7-10.4)
[2024-03-22 07:54] LABS: BUN/Creatinine Ratio 16.5 (10.0-20.0); Blood Urea Nitrogen 13 mg/dL (9-23); Glucose 97 mg/dL (74-106)
[2024-03-22] MEDS: BUPIVACAINE HCL 0.25% P/F 10 ML VIAL ONE (07:56)
[2024-03-22] MEDS: LIDOCAINE W/ EPINEPHRINE 1% 20ML VIAL ONE (07:57)
[2024-03-22] MEDS: D5W/SOD CHL 0.45%/KCL 20MEQ 1,000 ML IV SCH (08:15)
[2024-03-22] MEDS ORDERED: MORPHINE SULFATE INJ 2 MG/ml SYRG IV PRN (08:30)
[2024-03-22] MEDS ORDERED: HYDROmorphone HCL 2 MG/ML VL/or syr IV PRN ×2 (08:30)
[2024-03-22] MEDS: METOCLOPRAMIDE HCL 5MG/ml INJ 2ml VIAL IV ONE (08:30)
[2024-03-22] MEDS: KETOROLAC TROMETH 30 MG/ML 1ML VIAL IV ONE (08:30)
[2024-03-22] MEDS ORDERED: fentaNYL CITRATE 100 MCG/2 ML VL IV PRN (08:30)
--- NOTE | 2024-03-22 08:38 | DVHOP ---
DATE OF SURGERY: 03/22/2024 PREOPERATIVE DIAGNOSIS: Incarcerated right inguinal hernia. POSTOPERATIVE DIAGNOSIS: Incarcerated right inguinal hernia. SURGEON: John Piper MD SPACE CONTROL SUPERVISOR: Rickie Carlson. ANESTHESIA: General endotracheal. ANESTHESIOLOGIST: Dr. Hampton. PROCEDURE: Repair of incarcerated right inguinal hernia (indirect). DESCRIPTION OF PROCEDURE: Under general endotracheal anesthesia, with the patient's skin prepped and draped and infiltrated with 0.25% Marcaine, the incision was made over the visible palpable bulge. Subcutaneous tissues and fat divided with electrocautery down onto the fibers of the external oblique aponeurosis. The external ring was exposed. The hernia was large and grasped with a [place] forceps. The cord structures were encircled with a Kody drain and retracted laterally. The ilioinguinal nerve was identified and retracted and protected. The sac was opened and digitally explored, contained no visible bowel. No evidence of fluid. The of the sac revealed a tight hernia opening in the internal inguinal ring containing no bowel. The sac was from cremasteric fibers. The cord structures were from the sac. The sac was then placed on tension, twisted on itself, doubly ligated at its base and amputated. The excess peritoneum was submitted for histopathologic examination. The hernia floor was then repaired using nonabsorbable sutures through the conjoined tendon and reflecting part of Poupart's ligament. The internal ring was reconstructed to accommodate a fingertip as well as the cord structures. The testicle was then placed on tension into scrotal compartments. Subcutaneous tissues and skin approximated using Monocryl sutures, Dermabond glue and Steri-Strips. The patient remained stable throughout the procedure, left the operating room following an accurate needle and sponge count. MD RIMA Chow/YULI/KAMRAN TID: [id number] RECEIPT: [id number]
--- NOTE | 2024-03-22 13:59 | DVHPNRES ---
Progress Note Date Seen: Mar 22, 2024 Resident Creating Document: JONATHAN HENRY RESIDENT Medical Necessity Reason Pt with a Central, PICC or Fol: No Subjective Review of Systems The patient is a 38-year-old male with a history of a right-sided inguinal hernia who presents with persistent right groin pain that has progressively worsened over the past few months. He describes the pain as 6/10 in intensity and states that it has been unrelieved with conservative measures. Examination revealed an incarcerated, non-reducible hernia without signs of severe inflammation, such as erythema, warmth, or systemic symptoms like fever. The patient is currently receiving analgesics, which provide moderate relief. He has been placed on a soft mechanical diet in preparation for elective surgery scheduled for tomorrow morning. Saline IV fluids have been discontinued as the patient has been allowed to eat and drink today but will remain NPO after midnight to prepare for surgery. The patient is homeless with a history of substance abuse, including cocaine, marijuana, and methamphetamines. player services representative working on support for housing and rehabilitation resources. Patient examined at bedside, he reports some pain after the hernia repair surgery that was performed today, patient reports he is not able to walk at this time for which we ordered physical therapy evaluation. Patient will start clear liquid diet. The patient denies other acute complaints at this time. Patient reports: Feels better Changes from previous H/P or p: Changes Objective vital signs Vital Sign Date Time Temp Pulse Resp B/P (MAP) Pulse Ox O2 Delivery O2 Flow Rate FiO2 03/22/24 12:54 97.7 81 18 103/62 (76) 99 97.7 03/22/24 08:45 Room Air 0 03/22/24 08:45 96 Total Intake and Output 03/21/24 03/21/24 03/22/24 15:00 23:00 07:00 Intake Total 2025 ml 840 ml Output Total 1100 ml Balance 2025 ml -260 ml medications Current Medications Medications Dose Ordered Sig/Goldy Route Start Time Stop Time Status Last Admin Dose Admin Sodium Chloride 1,000 ml @ 75 mls/hr [id number] IV 03/20/24 22:00 03/21/24 16:30 75 MLS/HR Potassium Chloride/Dextrose/ Sod Cl 1,000 ml @ 100 mls/hr Q10H IV 03/22/24 08:15 Cefazolin Sodium/ Dextrose 50 ml @ 50 mls/hr Q8HR IV 03/22/24 14:00 Hydromorphone HCl 0.25 mg Q3HPRN PRN IV 03/22/24 08:15 Ondansetron HCl 4 mg Q4HPRN PRN IV 03/22/24 08:15 Examination EXAMINATION GENERAL APPEARANCE: ALERT, ORIENTED X3, COOPERATIVE, MODERATE ACUTE DISTRESS AFTER SURGERY. RESPIRATORY: CLEAR TO AUSCULTATION, NORMAL AIR MOVEMENT CARDIOVASCULAR: REGULAR RATE, NORMAL S1, NORMAL S2 ABDOMINAL: NORMAL BOWEL SOUNDS EXTREMITIES: NO CYANOSIS, NO EDEMA, NORMAL PULSES, NO TENDERNESS/SWELLING SKIN: NO RASHES, NO BREAKDOWN NEURO: UNABLE TO WALK BECAUSE OF THE PAIN, NORMAL SPEECH, STRENGTH AT 5/5 X4 EXT, NORMAL TONE, SENSATION INTACT PSYCH/MENTAL STATUS: MENTAL STATUS NL, MOOD NL laboratory and microbiology Laboratory Tests 03/22/24 05:54 Test 03/22/24 05:54 Range/Units Serum Glucose 97 74-106 mg/dL Problem List/Assessment/Plan Problem List/Assessment/Plan # acute abdominal pain due to incarcerated right inguinal hernia status post incarcerated hernia repair surgery - physical therapy evaluation - clear liquid diet - IV normal saline at 75 mL/hour #Polysubstance abuse #methamphetamine use #marijuana use #cocaine use -counseling regarding drug use cessation #Homelessness -social services counselor working on providing placement. -patient report he wants to be dicharge to a friends's house. Goal of care discussed with the patient for more than 24 minutes Plan discussed with Dr. Schreiber Code status: Full code Plan discussed with: Patient My Orders My Orders Orders - JONATHAN HENRY RESIDENT Procedure Category Date Status Time Electrocardigram EKG 03/21/24 Logged 15:15 Pt Request For Service PT 03/22/24 Verified 13:48 Full Liq Diet DIET 03/22/24 Verified Dinner Date of Service: Mar 22, 2024 Billing Provider: RAPHAEL SCHREIBER MD Common Visit Codes: [id number] INP/OBS CARE(HIGH) JONATHAN HENRY RESIDENT Mar 22, 2024 13:59 RAPHAEL SCHREIBER MD Mar 22, 2024 18:14
[2024-03-22] MEDS: ceFAZolin 2 GM/D5W50ml 50 ML IV SCH (15:45)
--- NOTE | 2024-03-22 17:35 | DVHSR ---
APPROVED REPORT EXAM: Two-dimensional and M-mode echocardiogram with Doppler and color Doppler. Blood Pressure: 113/72 mmHg INDICATION Dyspnea RISK FACTORS Height: 5'6", Weight: 162 DIMENSIONS LVDd5.3 (3.8-5.7cm)LA (2D)4.2 (1.9-4.0cm)Aortic Root3.0 (2.0-3.7cm) LVDs3.7 (2.5-4.0cm)LA (MM) (1.9-4.0cm)Aortic Cusp Exc2.2 (1.5-2.0cm) EF (%) 58.0 (55-70%)Rt. Atrium (1.9-4.0cm)Asc. Aorta3.0 cm IVSd0.7 (0.7-1.1cm)RV (D) (1.8-2.4cm) PWd1.0 (0.7-1.1cm) Mitral Valve MitralMitral Stenosis E/A ratio0.02D MVAcm2 Aortic Valve Aortic ValveAortic Stenosis LVOT Diameter2.5 (1.8-2.4cm)Doppler AVAcm2 2D AVA3.70cm2 Pulmonic Valve V20.91m/s Tricuspid Valve TR Velocity3.42m/s [id number] Other Information Quality : Technically LimitedRhythm : Technically limited study due to post op. Conclusion Normal left ventricular size and dimension. Normal left ventricular systolic function estimated ejec tion fraction 55%. Moderately dilated right ventricle. Moderate to severely elevated right ventricular systolic pressur e52 mm of mercury. Moderately dilated right atrium. Normal-sized left atrium. Normal aortic valve structure and function. Normal mitral valve structure and function. There is [id number] mild tricuspid valve regurgitation. The pulmonary valve is grossly normal. No pericardial effusion. New
[2024-03-23] VITALS (7 sets, daily range): BP systolic 99–119; BP diastolic 58–77; PULSE 63–70; RESP 17–20; TEMP 37.1; O2SAT 95–100
[2024-03-23] MEDS: ONDANSETRON HCL 4 MG/2 ML VIAL IV PRN (06:16)
[2024-03-23] MEDS: HYDROmorphone HCL 2 MG/ML VL/or syr IV PRN (06:17)
--- NOTE | 2024-03-23 12:42 | DVHPN2 ---
Progress Note Date Seen: Mar 23, 2024 Medical Necessity Reason Pt with a Central, PICC or Fol: No Objective vital signs Vital Sign Date Time Temp Pulse Resp B/P (MAP) Pulse Ox O2 Delivery O2 Flow Rate FiO2 03/23/24 10:28 75 16 104/68 03/23/24 09:00 98.3 95 98.3 03/23/24 08:00 Room Air* 0 21 Total Intake and Output 03/22/24 03/22/24 03/23/24 15:00 23:00 07:00 Intake Total 650 ml 200 ml Output Total 1775 ml 550 ml Balance -1125 ml -350 ml medications Current Medications Medications Dose Ordered Sig/Goldy Route Start Time Stop Time Status Last Admin Dose Admin Sodium Chloride 1,000 ml @ 75 mls/hr [id number] IV 03/20/24 22:00 03/23/24 03:20 75 MLS/HR Potassium Chloride/Dextrose/ Sod Cl 1,000 ml @ 100 mls/hr Q10H IV 03/22/24 08:15 03/23/24 04:15 100 MLS/HR Cefazolin Sodium/ Dextrose 50 ml @ 50 mls/hr Q8HR IV 03/22/24 14:00 03/23/24 06:00 50 MLS/HR Hydromorphone HCl 0.25 mg Q3HPRN PRN IV 03/22/24 08:15 03/23/24 10:28 0.25 MG Ondansetron HCl 4 mg Q4HPRN PRN IV 03/22/24 08:15 03/23/24 06:16 4 MG laboratory and microbiology Laboratory Tests 03/22/24 05:54 Test 03/22/24 05:54 Range/Units Serum Glucose 97 74-106 mg/dL Problem List/Assessment/Plan Problem List/Assessment/Plan 03/23/24 feels well, voiding, wound clean and well approximated, OK to discharge, no lifting or straining, return to see me in two weeks, may shower after 72 hours Plan discussed with: Patient RODRI HERNANDEZ MD Mar 23, 2024 12:42
[2024-03-23] MEDS ORDERED: CEPH500C PO (17:05)
[2024-03-23] MEDS ORDERED: IBUP1TAB5 PO (17:08)
--- NOTE | 2024-03-23 20:43 | DVHDSRES ---
Discharge Summary Date of Admission Resident Creating Document: JONATHAN HENRY RESIDENT Mar 20, 2024 at 21:56 Date of Discharge: Mar 23, 2024 Admitting Diagnosis acute abdominal pain due to incarcerated inguinal hernia Labs/Diagnostic Data: Laboratory Results Test 03/22/24 05:54 03/22/24 00:30 03/21/24 15:42 03/20/24 19:53 White Blood Count 6.0 10^3/uL (4.4-10.8) Red Blood Count 4.64 10^6/uL (4.5-5.90) Hemoglobin 13.7 g/dL (13.5-17.5) Hematocrit 40.7 % (41.0-53.0) Mean Corpuscular Volume 87.7 fL (80.0-100.0) Mean Corpuscular Hemoglobin 29.6 pg (28.0-32.0) Mean Corpuscular Hemoglobin Concent 33.7 g/dL (32.0-36.0) Red Cell Distribution Width 13.1 % (11.8-14.3) Platelet Count 273 10^3/uL (140-450) Mean Platelet Volume 9.1 fL (6.9-10.8) Neutrophils (%) (Auto) 48.0 % (37.0-80.0) Lymphocytes (%) (Auto) 39.6 % (10.0-50.0) Monocytes (%) (Auto) 5.8 % (0.0-12.0) Eosinophils (%) (Auto) 6.1 % (0.0-7.0) Basophils (%) (Auto) 0.5 % (0.0-2.0) Neutrophils # (Auto) 2.9 10 ^3/uL (1.6-8.6) Lymphocytes # (Auto) 2.4 10 ^3/uL (0.4-5.4) Monocytes # (Auto) 0.4 10 ^3/uL (0-1.3) Eosinophils # (Auto) 0.4 10 ^3/uL (0-0.8) Basophils # (Auto) 0 10 ^3/uL (0-0.2) Nucleated Red Blood Cells 0.1 % Sodium Level 138 mmol/L (136-145) Potassium Level 4.1 mmol/L (3.5-5.1) Chloride Level 106 mmol/L (98-107) Carbon Dioxide Level 27 mmol/L (20-31) Anion Gap 5 (5-15) Blood Urea Nitrogen 13 mg/dL (9-23) Creatinine 0.79 mg/dL (0.700-1.30) Glomerular Filtration Rate Calc 117 mL/min (>90) BUN/Creatinine Ratio 16.5 (10.0-20.0) Serum Glucose 97 mg/dL (74-106) Calcium Level 8.9 mg/dL (8.7-10.4) Urine Color Light-yellow (Yellow) Urine Clarity Clear (Clear) Urine pH 6.5 (5.0-9.0) Urine Specific [place] 1.020 (1.001-1.035) Urine Protein Negative (Negative) Urine Ketones Negative (Negative) Urine Blood Negative /uL (Negative) Urine Nitrite Negative (Negative) Urine Bilirubin Negative (Negative) Urine Urobilinogen Normal mg/dL (Negative) Urine Leukocyte Esterase Negative /uL (Negative) Urine RBC 1 /hpf (0 - 3) Urine WBC <1 /hpf (0 - 3) Urine Squamous Epithelial Cells None seen /hpf (<5) Urine Bacteria None seen /hpf (None Seen) Urine Sperm Present /hpf (None Seen) Urine Glucose Normal mg/dL (Normal) Activated Partial Thromboplast Time 28.5 SEC (24.5-34.5) Prothrombin Time 10.7 sec (9.3-11.8) Prothrombin Time INR 1.01 (0.9-1.15) Other Laboratory Tests 03/22/24 05:54 Brief Hx & Hospital Course: HPI: The patient is a 38-year-old male with a history of a right-sided inguinal hernia who presented with persistent right groin pain progressively worsening over the past few months. On examination, an incarcerated, non-reducible hernia was identified without signs of severe inflammation, systemic symptoms, or fever. Hospital Course: Preoperative Management: The patient was started on a soft mechanical diet and maintained NPO after midnight in preparation for surgery.The patient underwent hernia repair surgery on. The procedure was successful, with no intraoperative complications. Postoperative Management: The patient reported mild pain at the surgical site postoperatively, which was managed with analgesics.Physical therapy evaluation was ordered to assist with mobility as the patient was unable to walk independently postoperatively. A clear liquid diet was initiated and tolerated.The patient is clinically stable and recovering appropriately. Pain is well-managed with oral analgesics.The surgical site is clean, dry, and healing appropriately. No signs of infection were noted. Discharge Plan: Patient stable for discharge he was recommended to continue prescribed analgesics for pain as needed and follow postoperative instructions, including wound care and activity restrictions. Case discussed with Goals of care discussed with the patient for 34 minutes. Code status: full code Consults/Reason for consult Surgery: incarcerated inguinal hernia Operations or Procedures [place] [id number] Ph: [phone] DIAGNOSTIC IMAGING Diagnostic Imaging Report : [id number] Signed PATIENT: LINO PELAEZ ACCT: [id number] UNIT: [id number] : 1985 LOC: ER ROOM / BED: / AGE / SEX: 38 / M ADM STATUS: REG ER SERVICE 06 ORDERING PHYSICIAN: GUILLAUME NICOLAS MD PROCEDURE(s): CXRP - CHEST PORTABLE REASON: pre-op ORDER NUMBER(s): [id number], ACCESSION NUMBER(s): [id number] CHEST RADIOGRAPH Indication: pre-op Technique: Single frontal view of the chest was obtained COMPARISON: CHEST XRAY 1 VIEW on DOS: 06/26/20 FINDINGS: Lines and Tubes: None Lungs: Clear Pleura: No effusion. No pneumothorax. Cardiomediastinal contours: Unremarkable Bones: Unremarkable IMPRESSION: No acute disease. ATED BY: HENRI MCKEON MD DICTATED DATE/TIME: 03/20/242026 SIGNED BY: HENRI MCKEON MD SIGNED DATE/TIME: 03/20/242026 CC: Condition at Discharge: Fair Final Diagnosis/Problems List # acute abdominal pain due to incarcerated right inguinal hernia status post incarcerated hernia repair surgery #Polysubstance abuse #methamphetamine use #marijuana use #cocaine use #Homelessness Discharge Disposition: Home SNF Discharge Will this Physician continue t: No Discharge Instruct/Medications Diet: Cardiac 2g Na,low cholest Activity: No Restrictions, As Tolerated Follow Up/Referral: follow up with pcp within 1 to 2 weeks Medications: script to pharmacy Discharge Statement: "Patient was advised to return to the ER or call 911 if any headaches, dizziness, shortness of breath, chest pain, abdominal pain, bleeding, fevers, or worsening of medical condition. Patient was counseled about treatment plan, medications, possible side effects, patientverbalized understanding. All questions were answered to the best of my ability. This discharge took greater then 30 minutes in planning, reviewing documentation, counseling the patient, and discussing with other team members." ASSESSMENT ASSESSMENT Assessment incarcerated inguinal hernia s/p surgical repair Date of Service: Mar 23, 2024 Billing Provider: RAPHAEL SCHREIBER MD Common Visit Codes: 18970-BXT/OBS DISCH DAY >30min JONATHAN HENRY RESIDENT Mar 23, 2024 20:43 RAPHAEL CSHREIBER MD Mar 24, 2024 10:40
== END 2024-03-23 18:25 | disposition home or self-care (01) | DRG 228 ==
LOC: EDBD 19:34 → EDUNIT# 19:34 → ER 19:34 → OVERFLOW 21:56 → WEST WING 21:59
PROVIDERS: ADMIT Internal Medicine; ATTEND Internal Medicine
PROC: 0YQ50ZZ Repair Right Inguinal Region, Open Approach (ICD-10-PCS; principal; 2024-03-22 07:22)
DX: K40.30 Unilateral inguinal hernia, with obstruction, without gangrene, not specified as recurrent (principal); F12.90 Cannabis use, unspecified, uncomplicated; F17.210 Nicotine dependence, cigarettes, uncomplicated; F19.10 Other psychoactive substance abuse, uncomplicated; F15.90 Other stimulant use, unspecified, uncomplicated; F14.90 Cocaine use, unspecified, uncomplicated; Z59.00 Homelessness unspecified
CPT/HCPCS: 36415; 71045; 80048; 81001; 85025; 85610; 85730; 86850; 86900; 86901; 93306; 96361; 96374; 96375; 97163; G0378; J0330; J1885; J2250; J2405; J3490

== ENCOUNTER 2024-04-02 17:59 | Emergency (ER) | payer MEDICAID ==
[~2024-04-02] VITALS: Ht 172.7 cm; Wt 70.0 kg
[~2024-04-02 17:59] MED LIST changes: -ACE3T PO; +CEPH500C PO; -IBUP-1455 PO; +IBUP1TAB5 PO
--- NOTE | 2024-04-02 18:22 | ECG ---
[facility] Test Date: 2024-04-02 Test Time: 18:02:24 Pat Name: LINO PELAEZ Department: er Room: Gender: M [employer]: gp : 1985 Requested By: MARIO TAPIA Order Number: [id number] Reading MD: Ayaan Pizarro Measurements Intervals [place] Rate: 86 P: 66 MO: 142 QRS: 208 QRSD: 91 T: 42 QT: 361 QTc: 432 Interpretive Statements Sinus rhythm Right axis deviation Abnormal R-wave progression, late transition Electronically Signed On 04-03-2024 18:27:32 PST by Ayaan Pizarro Please click the below link to view image of tracing.
--- NOTE | 2024-04-02 19:44 | ED.PDOC ---
GI ASSESSMENT HPI Comments 38 y.o male presents to the ED via EMS for a chief complaint of abdominal ache associated with nausea, vomiting and diarrhea. Patient reports he is homeless, states he was outside unable to get himself up due to the persistent symptoms and had his friends call 911. Patient reports active nausea but no vomiting. He denies any other symptoms or pain Chief Complaint: Abdominal Pain Time Seen by MD: 19:39 Primary Care Provider: NONE Reviewed Notes: Nurses Notes, Medications, Allergies Allergies: Coded Allergies: NO KNOWN ALLERGIES (Unverified , 06/26/20) Home Meds Active Scripts Ondansetron Odt 4MG Tab (ZOFRAN PO) 4 Mg Tb, 4 MG PO Q8HP PRN for 5 Days, #15 TAB ODT TAB-DISSOLVE IN MOUTH, THEN SWALLOW Prov:MARIO TAPIA MD 04/02/24 Ibuprofen Micronized (Ibuprofen) 600 Mg Tab, 600 MG PO Q8HP PRN for 5 Days, #15 TAB Prov:MARCK LAL RESIDENT 03/23/24 Cephalexin Monohydrate (Cephalexin) 500 Mg Cap, 500 MG PO TID for 7 Days, #21 CAP Prov:MARCK LAL RESIDENT 03/23/24 Acetaminophen (Tylenol Extra Strength) 500 Mg Tab, 1000 MG PO Q6HP PRN, #30 TAB prn pain Prov:JULISSA MANTILLA MD 03/10/24 Ibuprofen (Ibuprofen) 800 Mg Tab, 1 TAB PO TID, #30 TAB 0 Refills Prov:JIMENA PETESR PAC 08/28/23 Ciprofloxacin Hcl (Cipro) 500 Mg Tab, 500 MG PO BID for 7 Days, #14 Prov:JHONY GRACE MD 06/08/21 Information Source: Patient Mode of Arrival: EMS Timing: Hours Duration: Since onset Quality: Aching Vomitus: Hard Stool: Loose Severity: Moderate Recent: None Recent Hx of: None Pain Location: Diffuse Modifying Factors: Nothing Associated sign and symptoms: Nausea, Vomiting, Abdominal Pain Past Medical History PAST MEDICAL HISTORY: Denies Surgical History: Hernia Repair, Tonsillectomy Family History Family History: Reviewed,noncontributory to illness Social History Smoker: Cigarettes Alcohol: Occasionally Drugs: Methamphetamine Lives In: Homeless Constitutional: denies: chills, diaphoresis, fatigue, fever, malaise, sweats, weakness, others EENTM: denies: blurred vision, double vision, ear bleeding, ear discharge, ear drainage, ear pain, ear ringing, eye pain, eye redness, hearing loss, mouth pain, mouth swelling, nasal discharge, nose bleeding, nose congestion, nose pain, photophobia, tearing, throat pain, throat swelling, voice changes, others Respiratory: denies: cough, hemoptysis, orthopnea, SOB at rest, shortness of breath, SOB with excertion, stridor, wheezing, others Cardiovascular: denies: chest pain, dizzy spells, diaphoresis, Dyspnea on exertion, edema, irregular heart beat, left arm pain, lightheadedness, palpitations, PND, syncope, others Gastrointestinal: reports: abdominal pain, diarrhea, nausea, vomiting; denies: abdomen distended, blood streaked bowels, constipated, dysphagia, difficulty swallowing, hematemesis, melena, poor appetite, poor fluid intake, rectal bleeding, rectal pain, others Genitourinary: denies: burning, dysuria, flank pain, frequency, hematuria, incontinence, penile discharge, penile sore, pain, testicle pain, testicle swelling, urgency, others Neurological: denies: dizziness, fainting, headache, left sided numbness, left sided weakness, numbness, paresthesia, pre-existing deficit, right sided numbness, right sided weakness, seizure, speech problems, tingling, tremors, weakness, others Musculoskeletal: denies: back pain, gout, joint pain, joint swelling, muscle pain, muscle stiffness, neck pain, others Integumetry: denies: bruises, change in color, change in hair/nails, dryness, laceration, lesions, lumps, rash, wounds, others Allergic/Immunocompromised: denies: Difficulty Healing, Frequent Infections, Hives, Itching, others Hematologic/Lymphatic: denies: anemia, blood clots, easy bleeding, easy bruising, swollen glands, others Endocrine: denies: excessive hunger, excessive sweating, excessive thirst, excessive urination, flushing, intolerance to cold, intolerance to heat, unexplained weight gain, unexplained weight loss, others Psychiatric: denies: anxiety, bipolar disorder, depression, hopeless, panic disorder, schizophrenia, sleepless, suicidal, others All Other Systems: Reviewed and Negative Physical Exam General Appearance: No Apparent Distress HEENT: Normal ENT Inspection, Pharynx Normal, TMs Normal Neck: Full Range of Motion, Non-Tender, Normal, Normal Inspection Respiratory: Chest Non-Tender, Lungs Clear, No Accessory Muscle Use, No Respiratory Distress, Normal Breath Sounds Cardiovascular: No Edema, No JVD, No Murmur, No Gallop, Normal Peripheral Pulses, Regular Rate/Rhythm Breast Exam: Deferred Gastrointestinal: No Organomegaly, Non Tender, No Pulsatile Mass, Normal Bowel Sounds, Soft Genitalia: Deferred Pelvic: Deferred Rectal: Deferred Extremities: No calf tenderness, Normal capillary refill, Normal inspection, Normal range of motion, Non-tender, No pedal edema Musculoskeletal : Apperance: Normal Neurologic: Alert, hat cutter II-XII nml as Tested, No Motor Deficits, Normal Affect, Normal Mood, No Sensory Deficits Cerebellar Function: Normal Reflexes: Normal Skin: Dry, Normal Color, Warm Lymphatic: No Adenopathy Was a procedure done? Was a procedure done?: No GI differential Dx Differential Diagnosis: Esophagitis, Gastroenteritis, UTI, Electrolyte Imbalance, Food Poisoning, Viral X-Ray, Labs, Meds, VS Vital Signs Date Time Temp Pulse Resp B/P (MAP) Pulse Ox O2 Delivery O2 Flow Rate FiO2 04/02/24 18:10 98.9 90 18 120/80 (93) 99 04/02/24 18:02 86 The patient was given Zofran 4 mg by mouth. At this time, the patient will be discharged At this time, the patient will follow up with the primary care doctor We did advise the patient that he should not be taking marijuana and that could also be the cause of his vomiting. Time of 1ST Reevaluation: 19:44 Reevaluation 1ST: Unchanged Patient Education/Counseling: Diagnosis, Treatment, Prognosis, Need For Follow Up Family Education/Counseling: No Family Present Departure 1 Departure Time of Disposition: 20:04 Impression: Primary Impression: Gastroenteritis Disposition: 01 HOME / SELF CARE / HOMELESS Condition: Fair e-Prescriptions Ondansetron Odt 4MG Tab (ZOFRAN PO) 4 Mg Tb 4 MG PO Q8HP PRN for 5 Days, #15 TAB ODT TAB-DISSOLVE IN MOUTH, THEN SWALLOW Prov: MARIO TAPIA MD 04/02/24 Discharged With: Self Critical Care Note Critical Care Time?: No Stability Stability form required: No I personally scribed for MARIO TAPIA MD ([email or web address]) on 04/02/24 at 19:44. Electronically submitted by Kari De La Cruz ([facility]). MARIO TAPIA MD Apr 02, 2024 19:44
[2024-04-02] MEDS ORDERED: ZOFR4T PO (20:00)
[2024-04-02] MEDS: ONDANSETRON ODT 4 MG TAB PO ONE (20:23)
[2024-04-02 20:39] VITALS: BP 100/60; PULSE 103; RESP 16; TEMP 97.8; O2SAT 98
== END 2024-04-02 20:41 | disposition home or self-care (01) ==
LOC: EDBD 17:59 → ER 18:05
DX: K52.9 Noninfective gastroenteritis and colitis, unspecified (principal); F17.210 Nicotine dependence, cigarettes, uncomplicated; F15.90 Other stimulant use, unspecified, uncomplicated; Z90.89 Acquired absence of other organs; Z98.890 Other specified postprocedural states; Z59.00 Homelessness unspecified; Z79.1 Long term (current) use of non-steroidal anti-inflammatories (NSAID); Z79.899 Other long term (current) drug therapy
CPT/HCPCS: 93005; 99283; Q0162